=== PATIENT | male | born 1945 | race Caucasian/White ===

== ENCOUNTER 2016-04-20 18:03 | Observation (INO) | payer MEDICARE ==
[2016-04-20] MEDS ORDERED: Aspirin Low Dose CHEW TAB* 81 MG PO ONE (18:18)
--- NOTE | 2016-04-20 18:51 | RAD ---
HISTORY: Dizziness COMPARISONS: None TECHNIQUE: Multiple contiguous axial CT scans were obtained of the head without intravenous contrast. FINDINGS: HEMORRHAGE/INFARCT: There is no hemorrhage or acute infarct. MASSES/SHIFT: There is no mass or shift. EXTRA-AXIAL SPACES: There are no extra-axial fluid collections. SULCI AND VENTRICLES: The sulci and ventricles are normal in size and position for the patient's stated age. CEREBRUM: There are no focal parenchymal abnormalities. BRAINSTEM: There are no focal parenchymal abnormalities. CEREBELLUM: There are no focal parenchymal abnormalities. VESSELS: The vessels are grossly normal. PARANASAL SINUSES: The paranasal sinuses are clear. ORBITS: The orbits are unremarkable. BONES AND SOFT TISSUE: No bone or soft tissue abnormalities are noted. OTHER: None IMPRESSION: NO ACUTE INTRACRANIAL PATHOLOGY.
--- NOTE | 2016-04-20 19:00 | RAD ---
HISTORY: Chest pain COMPARISONS: None VIEWS: 2: Frontal dual-energy and lateral views of the chest. FINDINGS: CARDIOMEDIASTINAL SILHOUETTE: The cardiomediastinal silhouette is normal. PAGE: The page are normal. PLEURA: The costophrenic angles are sharp. No pleural abnormalities are noted. LUNG PARENCHYMA: The lungs are clear. ABDOMEN: The upper abdomen is clear. There is no subphrenic gas. BONES AND SOFT TISSUES: Degenerative changes are noted along the spine. OTHER: None. IMPRESSION: NO ACTIVE CARDIOPULMONARY DISEASE.
[2016-04-20 19:03] LABS: Hematocrit 44 % (42-52); Hemoglobin 14.2 g/dl (14.0-18.0); Mean Corpuscular HGB Conc 33 g/dl (31-36); Mean Corpuscular Hemoglobin 25 pg (27-31); Mean Corpuscular Volume 76 fL (80-94); Mean Platelet Volume 9 um3 (7.4-10.4); Red Blood Count 5.74 10^6/ul (4.0-5.4); Red Cell Distribution Width 15 % (10.5-15); White Blood Count 8.5 10^3/ul (3.5-10.8)
[2016-04-20 19:11] LABS: Add Diff/Slide Review? Slide Review Added; Comments Flag Yes
[2016-04-20 19:24] LABS: Troponin I 0.04 ng/mL (<0.04)
[2016-04-20 19:27] LABS: Albumin 4.3 g/dL (3.2-5.2); BUN/Creatinine Ratio 25.6 (8-20); Calcium 9.6 mg/dL (8.6-10.3); EGFR African American 107.3 (>60); EGFR Non-African American 83.4 (>60); Globulin 2.7 g/dL (2-4); Magnesium 1.7 mg/dL (1.9-2.7); Potassium 3.8 mmol/L (3.5-5.0); Total Bilirubin 0.4 mg/dL (0.2-1.0)
[2016-04-20 19:55] LABS: T4 8.33 g/dL (6.09-12.23)
[2016-04-20 19:56] LABS: TSH (Thyroid Stimulating Horm) 2.81 mcIU/mL (0.34-5.60)
[2016-04-20] MEDS ORDERED: Magnesium Oxide TAB* 400 MG PO ONE (20:19)
[2016-04-20] MEDS ORDERED: Dextrose 50% Syringe 50 ML* 25 GM/50 ML SYRINGE IV PUSH PRN (20:21)
--- NOTE | 2016-04-20 20:25 | ED ---
Micky Nuñez Erika, scribed for Samir Franklni MD on 04/20/16 at 1900 . HPI Chest Pain - HPI Summary HPI Summary: Patient is a 70-year-old male presenting to the ED with a CC of chest pressure. Patient reports that he first noticed the chest pressure around 07:00 this morning, and that it had resolved after 30-60 minutes. Currently, he denies chest pressure. He also reports that he felt lightheaded at that time, and this has persisted. After the onset of the chest pressure, patient took his blood pressure and pulse - found to be 121/79 and 149, respectively. He had recently increased his losartan dosage from 50 mg to 100 mg on 04/06/2016. Pt notes some SOB with the elevated pulse, but denies palpitations. Patient denies any N/V/D. PMHx HTN, diabetes, hyperlipidemia. Denies Hx CAD. PSHx hernia repair. FHx diabetes. Patient does not smoke or drink. - History of Current Complaint Chief Complaint: EDChestPainROMI Time Seen by Provider: 04/20/16 18:19 Hx Obtained From: Patient, Family/[employer] Worker - Onset/Duration: Started Hours Ago, Atraumatic, Resolved - chest pain has resolved Timing: Constant Initial Severity: Moderate Current Severity: None Pain Intensity: 0 Pain Scale Used: 0-10 Numeric Chest Pain Radiates: No Character: Pressure/Squeezing, Tightness Aggravating Factor(s): Nothing Alleviating Factor(s): Spontaneous Resolution Associated Signs and Symptoms: Positive: Shortness of Breath, Lightheadedness. Negative: Nausea, Palpitations, Vomiting - Allergy/Home Medications Allergies/Adverse Reactions: Allergies Allergy/AdvReac Type Severity Reaction Status Date / Time Atorvastatin [From Lipitor] Allergy Muscle Ache Verified 04/01/14 10:39 PMH/Surg Hx/FS Hx/Imm Hx Endocrine/Hematology History: Reports: Hx Diabetes Cardiovascular History: Reports: Hx Hypercholesterolemia, Hx Hypertension Denies: Hx Coronary Artery Disease, Hx Pacemaker/ICD Sensory History: Denies: Hx Hearing Aid Psychiatric History: Reports: Hx Panic Disorder - Surgical History Surgery Procedure, Year, and Place: VASECTOMY, hernia repair Infectious Disease History: No Infectious Disease History: Denies: Traveled Outside the [place] in Last 30 Days - Family History Known Family History: Positive: Diabetes - Social History Lives: With Family Alcohol Use: None Hx Substance Use: No Substance Use Type: Reports: None Hx Tobacco Use: No Smoking Status (MU): Never Smoked Tobacco Review of Systems Positive: Chest Pain. Negative: Palpitations Positive: Shortness Of Breath Negative: Vomiting, Diarrhea, Nausea Neurological: Other - lightheadedness All Other Systems Reviewed And Are Negative: Yes Physical Exam - Summary Physical Exam Summary: VITAL SIGNS: Reviewed. GENERAL: Patient is a well developed and nourished male who is lying comfortable in the stretcher. Patient is not in any acute respiratory distress. HEAD AND FACE: No signs of trauma. No ecchymosis, hematomas or skull depressions. No sinus tenderness. EYES: PERRLA, EOMI x 2, No injected conjunctiva, no nystagmus. No photophobia. EARS: Hearing grossly intact. Ear canals and tympanic membranes are within normal limits. MOUTH: Oropharynx within normal limits. NECK: Supple, trachea is midline, no adenopathy, no JVD, no carotid bruit, no c- spine tenderness, neck with full ROM. No meningeal signs, no Kernig's or brudzinskis signs. CHEST: Symmetric, no tenderness at palpation LUNGS: Clear to auscultation bilaterally. No wheezing or crackles. CVS: Regular rate and rhythm, S1 and S2 present, no murmurs or gallops appreciated. ABDOMEN: Soft, non-tender. No signs of distention. No rebound no guarding, and no masses palpated. Bowel sounds are normal. EXTREMITIES: FROM in all major joints, no edema, no cyanosis or clubbing. NEURO: Alert and oriented x 3. No acute neurological deficits. Speech is normal and follows commands. SKIN: Dry and warm Triage Information Reviewed: Yes Vital Signs On Initial Exam: Initial Vitals Temp Pulse Resp BP Pulse Ox 98.3 F 87 18 156/90 97 04/20/16 18:05 04/20/16 18:05 04/20/16 18:05 04/20/16 18:05 04/20/16 18:05 Vital Signs Reviewed: Yes Diagnostics - Vital Signs Vital Signs Temp Pulse Resp BP Pulse Ox 04/20/16 18:05 98.3 F 87 18 156/90 97 - Laboratory Lab Results: Lab Results 02/08/17 02/08/17 02/08/17 Range/Units 18:55 18:55 18:55 WBC 8.5 (3.5-10.8) 10^3/ul RBC 5.74 H (4.0-5.4) 10^6/ul Hgb 14.2 (14.0-18.0) g/dl Hct 44 (42-52) % MCV 76 L (80-94) fL MCH 25 L (27-31) pg MCHC 33 (31-36) g/dl RDW 15 (10.5-15) % Plt Count 217 (150-450) 10^3/ul MPV 9 (7.4-10.4) um3 Neut % (Auto) 53.9 (38-83) % Lymph % (Auto) 34.8 (25-47) % [place] % (Auto) 8.4 (1-9) % Eos % (Auto) 2.1 (0-6) % Baso % (Auto) 0.8 (0-2) % Absolute Neuts (auto) 4.6 (1.5-7.7) 10^3/ul Absolute Lymphs (auto) 3.0 (1.0-4.8) 10^3/ul Absolute Monos (auto) 0.7 (0-0.8) 10^3/ul Absolute Eos (auto) 0.2 (0-0.6) 10^3/ul Absolute Basos (auto) 0.1 (0-0.2) 10^3/ul Absolute Nucleated RBC 0 10^3/ul Nucleated RBC % 0 Sodium 137 (133-145) mmol/L Potassium 3.8 (3.5-5.0) mmol/L Chloride 105 (101-111) mmol/L Carbon Dioxide 26 (22-32) mmol/L Anion Gap 6 (2-11) mmol/L BUN 23 (6-24) mg/dL Creatinine 0.90 (0.67-1.17) mg/dL Est GFR ( Amer) 107.3 (>60) Est GFR (Non-Af Amer) 83.4 (>60) BUN/Creatinine Ratio 25.6 H (8-20) Glucose 147 H (70-100) mg/dL Calcium 9.6 (8.6-10.3) mg/dL Magnesium 1.7 L (1.9-2.7) mg/dL Total Bilirubin 0.40 (0.2-1.0) mg/dL AST 17 (13-39) U/L ALT 25 (7-52) U/L Alkaline Phosphatase 44 (34-104) U/L Total Creatine Kinase 96 (10-223) U/L CK-MB (CK-2) 4.2 (0.6-6.3) ng/mL Myoglobin 38.1 (17.4-105.7) ng/mL Troponin I 0.04 H* (<0.04) ng/mL B-Natriuretic Peptide 67 ( - 100) pg/mL Total Protein 7.0 (6.4-8.9) g/dL Albumin 4.3 (3.2-5.2) g/dL Globulin 2.7 (2-4) g/dL Albumin/Globulin Ratio 1.6 (1-3) TSH 2.81 (0.34-5.60) mcIU/mL Thyroxine (T4) 8.33 (6.09-12.23) g/dL Result Diagrams: 04/20/16 18:55 04/20/16 18:55 Lab Statement: Any lab studies that have been ordered have been reviewed, and results considered in the medical decision making process. - Radiology CXR Radiology Interpretation Completed By: Radiologist - IMPRESSION: NO ACTIVE CARDIOPULMONARY DISEASE. - CT CT Brain CT Interpretation Completed By: Radiologist - IMPRESSION: NO ACUTE INTRACRANIAL PATHOLOGY. - EKG 18:10 Cardiac Rate: NL - at 84 bpm EKG Rhythm: Sinus Rhythm EKG Interpretation: No ST elevation. T wave inversions V5-V6 Chest Pain Course/Dx - Course Assessment/Plan: Patient is a 70-year-old male presenting to the ED with a CC of chest pressure. Patient reports that he first noticed the chest pressure around 07:00 this morning, and that it had resolved after 30-60 minutes. Currently, he denies chest pressure. He also reports that he felt lightheaded at that time, and this has persisted. After the onset of the chest pressure, patient took his blood pressure and pulse - found to be 121/79 and 149, respectively. He had recently increased his losartan dosage from 50 mg to 100 mg on 04/06/2016. Pt notes some SOB with the elevated pulse, but denies palpitations. Patient denies any N/V/D. PMHx HTN, diabetes, hyperlipidemia. Denies Hx CAD. PSHx hernia repair. FHx diabetes. Patient does not smoke or drink. Blood work WNL except for glucose of 147, magnesium of 1.7, and troponin of 0.04. EKG shows NSR without ST elevation. CXR shows no acute pathology. In the ED course, the pt was given aspirin. Because of his comorbidities, I discussed the case with Dr. Dickens, who accepted the pt for admission. The pt is A&Ox3 and hemodynamically stable. - Chest Pain Differential Diagnosis/HQI/PQRI: Acute SD, ACS, Angina, CHF, Chest Wall, GI Disease, Lower Respiratory Infection - Diagnoses Provider Diagnoses: Chest pain r/o ACS, Elevated troponin - Provider Notifications Discussed Care Of Patient With: Dr. Dickens (hospitalist) at 19:42 - agrees to admit Discharge - Discharge Plan Condition: Stable Disposition: ADMITTED TO [facility] Referrals: Lloyd Herrera MD [Primary Care Provider] - The documentation as recorded by the Micky morales Erika accurately reflects the service I personally performed and the decisions made by , Samir Franklin MD.
--- NOTE | 2016-04-20 23:15 | HP ---
HOSPITAL MEDICINE HISTORY AND PHYSICAL: DATE OF ADMISSION: 04/20/16 PRIMARY CARE PHYSICIAN: Dr. Herrera. ATTENDING PHYSICIAN: Dr. Denny Dickens*(dictation provided by Sil Dillon NP ) PRIMARY COMPLAINT: Chest pain and fast heart rate. HISTORY OF PRESENT ILLNESS: Mr. Sanabria is a 70-year-old male with a past medical history of diabetes, but no known history of coronary artery disease, who presents today to the hospital with concern for an episode of lightheadedness, fast heart rate, and chest pressure. Mr. Sanabria states that he was feeling fine yesterday when he went to bed, but when he got up this morning he felt somewhat lightheaded. He also felt a very mild chest pressure. He had recently had his losartan dose increased from 50 to 100 mg at his last physical on April [address] Herrera. The patient was considered that lightheadedness might be a symptom of low blood pressure and therefore, he measured his blood pressure with his home automatic machine. It was noted to be 121/76, but surprisingly his heart rate was 140. The patient continued to take his blood pressure and heart rate throughout the day up until around 4 p.m. Throughout the day, his blood pressure remained approximately in the 160s systolically, but his heart rate fell by the afternoon to approximately 70. The patient states that he was not feeling lightheaded or having chest pressure during all of this time and that those symptoms were very short lived. He was actually more concerned about his fast heart rate. He did call his primary care's office and ultimately was recommended to come to the emergency room. Other than these complaints, Mr. Sanabria denies any acute issues. He has ongoing issues with chronic low back and shoulder pain and does not currently take any routine pain medication regimen for that. He denies any recent acute illnesses. In the emergency room, Mr. Sanabria's troponin was 0.04. His EKG shows no evidence of ischemia. Chest x-ray shows no acute process. Based on his presentation with concern for lightheadedness and fast heart rate with chest pressure and abnormal troponin, Hospital Medicine was called regarding admission. PAST MEDICAL HISTORY: 1. Diabetes, non-insulin dependent. 2. BPH. 3. History of hernia repair. 4. History of vasectomy. 5. History of hyperlipidemia. 6. History of chronic back pain. 7. History of chronic shoulder pain. MEDICATIONS: As outpatient are: 1. Aspirin 81 mg p.o. daily. 2. Glyburide 10 mg p.o. daily. 3. Tamsulosin 0.4 mg p.o. daily. 4. Niacin 500 mg p.o. daily. 5. Metformin 1000 mg p.o. b.i.d. 6. Losartan 100 mg p.o. daily. 7. Glucosamine/chondroitin 1 tab p.o. daily. 8. Finasteride 10 mg p.o. daily. ALLERGIES: To ATORVASTATIN. FAMILY HISTORY: The patient reports that his father and brother had late-life diabetes. His father had 2 strokes and at age 84. His mother had Alzheimer's disease and at age 94. SOCIAL HISTORY: The patient denies any history of smoking. He used to drink alcohol, but has been abstinent for some time. He states that his partner, Breana Koch, will be his healthcare proxy. REVIEW OF SYSTEMS: A 14-point review of systems was completed with Mr. Sanabria and other than mentioned above were negative. PHYSICAL EXAMINATION GENERAL: Mr. Sanabria is sitting up in the bed, he is in no acute distress. VITAL SIGNS: Temperature 98.3, heart rate 81, respiratory rate 18, O2 saturation 96% on room air, and blood pressure 140/77. LUNGS: Clear to auscultation bilaterally with no accessory muscle use and good aeration. HEART: S1 and S2. No murmur, rub, or gallop, and regular. ABDOMEN: Soft and nontender with bowel sounds positive x4. EXTREMITIES: No cyanosis or edema. NEURO: He is alert and oriented x3. Moves all extremities equally. There is no facial asymmetry or focal weakness. Extraocular movements are intact. SKIN: Intact. DIAGNOSTIC STUDIES/LAB DATA: WBC 8.5, hemoglobin 14.2, hematocrit 44, platelet count 217. Sodium 137, potassium 3.8, chloride 105, serum bicarbonate 26, BUN 23, creatinine 0.90, glucose 147, magnesium 1.7. Troponin 0.04. EKG shows sinus rhythm with no evidence of ischemia. Chest x-ray shows no acute process. CT brain shows no acute process. ASSESSMENT AND PLAN: Mr. Sanabria is a 70-year-old male with a past medical history of diabetes and obesity, who presents today to the hospital with concern for lightheadedness, chest pressure, and fast heart rate as noted on his own manual blood pressure machine at home. The patient's troponin is abnormal at 0.04. Plans are for observation in the hospital for the followin. Chest pressure: The patient's troponin is abnormal. We will repeat that q.3 hours x2. The patient will have telemetry monitoring. He will go on for a chemical nuclear medicine stress test tomorrow. 2. Elevated heart rate: The patient's automatic blood pressure cuff did show elevated heart rate for several hours at home. The patient himself was unable to palpate his own pulse and did not feel any palpitation. Our plans will be to monitor to telemetry and continue testing for chest pain as per above. If any abnormalities are seen, we will give consideration to echocardiogram, but I do not see utility for one unless an arrhythmia is identified. 3. Diabetes. Plan to hold metformin and glyburide and the patient will have blood glucoses q.a.c. with lispro sliding scale insulin. 4. Hyperlipidemia. The patient will continue on his fenofibrate and niacin if those are available on formulary. 5. DVT prophylaxis. With heparin subcu. 6. Code status. Full code. 7. Disposition. Telemetry floor. TIME SPENT: Approximately 60 minutes was spent on the admission of this patient , more than half the time was spent with the patient at the bedside reviewing the events leading up to this hospitalization, performing the physical examination, and reviewing my plan of care. SIL DILLON NP CC: Dr. Herrera* [id number]/[facility] #: [id number] RAYA
[2016-04-20] MEDS: Heparin VIAL(*) 5000 UNITS/ML VIAL (FIVE THOUSAND) SUBCUT SCH (23:16)
[2016-04-21 01:38] LABS: Troponin I 0.03 ng/mL (<0.04)
[2016-04-21 01:52] LABS: HDL Cholesterol 27.4 mg/dL
[2016-04-21 02:29] LABS: Urine Bilirubin Negative (Negative); Urine Glucose Negative (Negative); Urine Nitrite Negative (Negative)
[2016-04-21] MEDS: Heparin VIAL(*) 5000 UNITS/ML VIAL (FIVE THOUSAND) SUBCUT SCH ×2 (05:55→14:08)
[2016-04-21] MEDS ORDERED: Losartan TAB* 25 MG PO SCH (09:00)
[2016-04-21] MEDS ORDERED: Finasteride TAB* 5 MG PO SCH (09:00)
[2016-04-21] MEDS ORDERED: Aspirin EC Low Dose* 81 MG TAB.EC PO SCH (09:00)
[2016-04-21] MEDS ORDERED: Tamsulosin CAP* 0.4 MG PO SCH (09:00)
[2016-04-21] MEDS: Insulin LISPRO* 1 UNITS UNIT SUBCUT SCH ×2 (09:16→14:08)
[2016-04-21] MEDS ORDERED: Aminophylline IV* 25 MG/ML 10 ML VIAL ONE (09:48)
[2016-04-21] MEDS ORDERED: Regadenoson* 0.4 MG/5 ML SYRINGE ONE (09:48)
--- NOTE | 2016-04-21 11:43 | PN ---
Subjective Date of Service: 04/21/16 Interval History: Mr. Sanabria states he is feeling well and is eager for discharge. Objective Active Medications: Aspirin (Aspirin Ec Low Dose*) 81 mg PO DAILY REPLACED BY [facility] Dextrose (D50w Syringe 50 Ml*) 12.5 gm IV PUSH .FOR FS < 60 - SS PRN Finasteride (Proscar Tab*) 5 mg PO DAILY REPLACED BY [facility] Heparin Sodium (Porcine) (Heparin Vial(*)) 5,000 units SUBCUT Q8HR REPLACED BY [facility] Insulin Human Lispro (Humalog*) 0 units SUBCUT AC REPLACED BY [facility] Losartan Potassium (Cozaar Tab*) 100 mg PO DAILY REPLACED BY [facility] Tamsulosin HCl (Flomax Cap*) 0.4 mg PO DAILY REPLACED BY [facility] Vital Signs 04/20/16 04/20/16 04/20/16 20:30 21:00 21:04 Temperature Pulse Rate 80 80 84 Respiratory 19 19 19 Rate Blood Pressure 137/83 143/83 (mmHg) O2 Sat by Pulse 95 95 96 Oximetry 04/20/16 04/20/16 04/20/16 21:52 21:54 23:23 Temperature 97.9 F 97.9 F 98.1 F Pulse Rate 80 80 84 Respiratory 16 16 16 Rate Blood Pressure 136/69 136/69 146/68 (mmHg) O2 Sat by Pulse 95 96 95 Oximetry 04/21/16 04/21/16 03:49 07:14 Temperature 97.8 F 97.6 F Pulse Rate 73 63 Respiratory 16 16 Rate Blood Pressure 128/86 145/88 (mmHg) O2 Sat by Pulse 96 98 Oximetry Oxygen Devices in Use Now: None Appearance: Male sitting up in chair in NAD Respiratory: Symmetrical Chest Expansion and Respiratory Effort, Clear to Auscultation Cardiovascular: NL Sounds; No Murmurs; No JVD, No Edema Abdominal: NL Sounds; No Tenderness; No Distention Extremities: No Edema Skin: No Rash or Ulcers Neurological: Alert and Oriented x 3, NL Muscle Strength and Tone Nutrition: Taking PO's Result Diagrams: 04/20/16 18:55 04/20/16 18:55 Additional Lab and Data: Lab Results 04/20/16 04/20/16 04/20/16 Range/Units 18:55 18:55 18:55 WBC 8.5 (3.5-10.8) 10^3/ul RBC 5.74 H (4.0-5.4) 10^6/ul Hgb 14.2 (14.0-18.0) g/dl Hct 44 (42-52) % MCV 76 L (80-94) fL MCH 25 L (27-31) pg MCHC 33 (31-36) g/dl RDW 15 (10.5-15) % Plt Count 217 (150-450) 10^3/ul MPV 9 (7.4-10.4) um3 Neut % (Auto) 53.9 (38-83) % Lymph % (Auto) 34.8 (25-47) % [place] % (Auto) 8.4 (1-9) % Eos % (Auto) 2.1 (0-6) % Baso % (Auto) 0.8 (0-2) % Absolute Neuts (auto) 4.6 (1.5-7.7) 10^3/ul Absolute Lymphs (auto) 3.0 (1.0-4.8) 10^3/ul Absolute Monos (auto) 0.7 (0-0.8) 10^3/ul Absolute Eos (auto) 0.2 (0-0.6) 10^3/ul Absolute Basos (auto) 0.1 (0-0.2) 10^3/ul Absolute Nucleated RBC 0 10^3/ul Nucleated RBC % 0 Sodium 137 (133-145) mmol/L Potassium 3.8 (3.5-5.0) mmol/L Chloride 105 (101-111) mmol/L Carbon Dioxide 26 (22-32) mmol/L Anion Gap 6 (2-11) mmol/L BUN 23 (6-24) mg/dL Creatinine 0.90 (0.67-1.17) mg/dL Est GFR ( Amer) 107.3 (>60) Est GFR (Non-Af Amer) 83.4 (>60) BUN/Creatinine Ratio 25.6 H (8-20) Glucose 147 H (70-100) mg/dL Calcium 9.6 (8.6-10.3) mg/dL Magnesium 1.7 L (1.9-2.7) mg/dL Total Bilirubin 0.40 (0.2-1.0) mg/dL AST 17 (13-39) U/L ALT 25 (7-52) U/L Alkaline Phosphatase 44 (34-104) U/L Total Creatine Kinase 96 (10-223) U/L CK-MB (CK-2) 4.2 (0.6-6.3) ng/mL Myoglobin 38.1 (17.4-105.7) ng/mL Troponin I 0.04 H* (<0.04) ng/mL B-Natriuretic Peptide 67 ( - 100) pg/mL Total Protein 7.0 (6.4-8.9) g/dL Albumin 4.3 (3.2-5.2) g/dL Globulin 2.7 (2-4) g/dL Albumin/Globulin Ratio 1.6 (1-3) TSH 2.81 (0.34-5.60) mcIU/mL Thyroxine (T4) 8.33 (6.09-12.23) g/dL Assess/Plan/Problems-Billing Assessment: Mr. Sanabria is a 70 yo male with a PMH of type 2 DM who was admitted on 04/20/16 with chest pain and report of HR 140s at home. - Patient Problems (1) Chest pain Comment: No further pain. Trops peaked at 0.04. Stress test shows artifact only. ? if symptoms related to tachycardia. (2) Tachycardia Comment: No tachycardia noted on telemetry monitoring. HR noted to be elevated on home auto BP cuff. Question reliability as patient did not feel palpitations and was unable to palpate his pulse. Patient to follow up with PCP regarding longer term outpatient cardiac monitoring. (3) Diabetes Comment: Hgb A1c 8.0. Dietary compliance emphasized. Patient to follow up with PCP regarding lifestyle change and possible medication changes. (4) Hyperlipidemia Comment: Cholesterol well controlled on current regimen. (5) DVT prophylaxis Comment: Heparin SQ. Status and Disposition: OBV. Discharge to home.
[2016-04-21 11:46] VITALS: BP 158/81
--- NOTE | 2016-04-21 13:14 | RAD ---
Edited for charges. INDICATION: Chest pain. COMPARISON: There are no prior studies available for comparison. Technique: A single day myocardial perfusion stress study was performed. Initially the resting study was performed. The patient was given an intravenous injection of 10.8 mCi of technetium 99m tetrofosmin and and the heart was imaged in multiple projections. The patient returned later in the day and under the direction of Dr. Hoffman, the patient was given intervenous injection of Lexiscan. Subsequently the patient was given intravenous injection of 25.8 mCi of technetium 99m tetrofosmin and the heart was imaged in multiple projections. The patient was unable to be positioned for the attenuation corrected images limiting the study. Images were reconstructed in the axial, sagittal and coronal planes and in a 3- D format. FINDINGS: There appears to be normal wall motion. The left ventricular ejection fraction was calculated to be 58%. Review of the images demonstrates a small area of decreased activity in the inferior wall which appears similar on the post pharmacologic stress and resting images likely representing attenuation artifact less likely infarct. No other focal abnormalities are seen. There is no evidence for ischemia. The transient ischemic dilatation ratio is 1.01 which is within normal limits. IMPRESSION: THERE IS A SMALL PERSISTENT AREA OF DECREASED ACTIVITY IN THE INFERIOR WALL MOST CONSISTENT WITH ATTENUATION ARTIFACT LESS LIKELY AN INFARCT. ASSESSMENT: Low risk. Based on imaging criteria from ACC/AHA 2002 Guideline Update for the Management of Patients With Chronic Stable Angina Table 23. Noninvasive Risk Stratification. MTDD
--- NOTE | 2016-04-22 03:30 | DS ---
HOSPITAL MEDICINE DISCHARGE SUMMARY: DATE OF ADMISSION: 04/20/16 DATE OF DISCHARGE: 04/21/16 PRIMARY CARE PHYSICIAN: Dr. Herrera. ATTENDING PHYSICIAN: Dr. Diaz Baez *(dictation provided by Akbar Dillon NP) . PRIMARY DIAGNOSES: 1. Chest pain, atypical. 2. Tachycardia noted at home on home auto blood pressure cuff. 3. Hemoglobin A1c 8.0. SECONDARY DIAGNOSES: 1. History of type 2 diabetes, non-insulin dependent. 2. Benign prostatic hyperplasia. 3. History of hernia repair. 4. History of vasectomy. 5. Hyperlipidemia. 6. History of chronic back pain. 7. History of chronic shoulder pain. MEDICATIONS OUTPATIENT: 1. Aspirin 81 mg p.o. daily. 2. Glyburide 10 mg p.o. daily. 3. Tamsulosin 0.4 mg p.o. daily. 4. Niacin 500 mg p.o. daily. 5. Metformin 1000 mg p.o. b.i.d. 6. Losartan 100 mg p.o. daily. 7. Glucosamine/chondroitin 1 tab p.o. daily. 8. Finasteride 10 mg p.o. daily. HOSPITAL COURSE: Mr. Sanabria is a 70-year-old male with past medical history of diabetes and hyperlipidemia, who presented to the hospital on 04/20/16 with concern for chest pain and fast heart rate at home. Please see the dictated H and P from myself for complete details. In brief, the patient reported that he awoke feeling lightheaded with some chest discomfort that morning. He checked his blood pressure and noted that his heart rate was approximately 140. His blood pressure ran somewhere between 130s and 160s systolically throughout that day, but his heart rate did come down into the 80s by about 4 o'clock in the afternoon. The patient reported to the emergency room for evaluation. He was found to have a troponin that was 0.04 and EKG which showed a normal sinus rhythm. Mr. Sanabria was admitted to the hospital. He had serial troponins with a peak at 0.04. He has a lipid profile showing LDL of 96 and HDL of 27.4 with total cholesterol of 150. He has a hemoglobin A1c of 8.0. He went on for stress testing and was found to have concern for artifact, but no evidence of infarct and a low- risk stress test. He was monitored on telemetry unit and had no further episodes of tachycardia. Mr. Sanabria was encouraged to follow up with Dr. Herrera regarding his episode of tachycardia. He states that on reflection, he has had similar episodes in the past, although during those episodes, he had not checked his heart rate. I am concerned that perhaps he has atrial fibrillation and I think he would benefit from long-term outpatient cardiac monitoring. I also think he needs to follow up with Dr. Herrera regarding management of his diabetes as his hemoglobin A1c is out of target range. I have encouraged the patient strongly to follow a low- carb diet and to consider initiation of exercise routine. Mr. Sanabria is medically stable for discharge home to follow up with Dr. Herrera as per above. DISPOSITION: To home. DIET: Consistent carbohydrate, low fat. ACTIVITY: As tolerated. FOLLOWUP PLANS: Please follow up with Dr. Herrera as per above. An appointment has been scheduled. TIME SPENT: Approximately 60 minutes was spent on the discharge of this patient , more than half the time was spent with the patient at the bedside, reviewing the events leading up to this hospitalization, performing the physical examination, and reviewing the plan of care. AKBAR DILLON NP CC: Dr. Herrera* [id number]/[facility] #: [id number] RAYA
== END 2016-04-21 14:45 | disposition home or self-care (01) ==
LOC: ED 18:03 → MEDTELE 20:17
PROVIDERS: ADMIT Hospitalist; ATTEND Internal Medicine
DX: R07.9 Chest pain, unspecified (principal); R00.0 Tachycardia, unspecified; E11.9 Type 2 diabetes mellitus without complications; Z79.84 Long term (current) use of oral hypoglycemic drugs; N40.0 Benign prostatic hyperplasia without lower urinary tract symptoms; E78.5 Hyperlipidemia, unspecified; G89.29 Other chronic pain; M54.9 Dorsalgia, unspecified; R06.02 Shortness of breath; M25.519 Pain in unspecified shoulder; Z79.82 Long term (current) use of aspirin; Z79.899 Other long term (current) drug therapy; Z88.8 Allergy status to other drugs, medicaments and biological substances
CPT/HCPCS: 36415; 70450; 71020; 78452; 80053; 80061; 81003; 82550; 82553; 83036; 83735; 83874; 83880; 84436; 84443; 84484; 85025; 93005; 93017; 99284; A9270-GY; A9502; G0378; J0280; J1644; J2785